=== PATIENT | male | born 2000 | race Two or more races ===

== ENCOUNTER 2020-11-19 10:35 | Outpatient (REF) | payer OTHER, SELFPAY | END 2020-11-19 10:36 | disposition home or self-care (01) | LOC: HO.LAB 10:35 | PROVIDERS: Visit Provider Internal Medicine | DX: Z20.822 Contact with and (suspected) exposure to COVID-19 (principal) | CPT/HCPCS: 36415; C9803; U0003; U0005 ==

== ENCOUNTER 2020-11-25 12:02 | Outpatient (REF) | payer OTHER, SELFPAY | END 2020-11-25 12:03 | disposition home or self-care (01) | LOC: HO.LAB 12:02 | PROVIDERS: Visit Provider Internal Medicine | DX: Z20.822 Contact with and (suspected) exposure to COVID-19 (principal) | CPT/HCPCS: 36415; C9803; U0003; U0005 ==

== ENCOUNTER 2023-01-15 20:47 | Emergency (ER) | payer OTHER, SELFPAY ==
--- NOTE | ~2023-01-15 | CT_ITS ---
EXAMINATION: CT HEAD WITHOUT CONTRAST CLINICAL INFORMATION: Headache for 2 weeks, neurofibromatosis brain tumors COMPARISON: None available. TECHNIQUE: Contiguous axial imaging was performed from the skull base to vertex without intravenous administration of contrast. This CT examination was performed using dose optimization techniques as appropriate, variously including the following: *Automated exposure control *Adjustment of mA and/or kV according to patient size (this includes techniques or standardized protocols for targeted exams where dose is matched to indication/reason for exam; i.e. extremities or head) *Use of iterative reconstruction technique DLP: 689 mGy-cm FINDINGS: There is no evidence of acute intracranial hemorrhage or territorial infarction. No abnormal mass-effect or midline shift is seen. Miller to white matter differentiation is well preserved. No extra-axial fluid collections are identified. The ventricles are normal in size. There is no abnormal attenuation within the brain parenchyma. Right frontal calvarial varghese hole is suspected. No acute fracture is seen. The mastoid air cells and visualized portions of the paranasal sinuses are well-aerated. CT/CT head/brain wo IV con IMPRESSION: No acute intracranial pathology identified. If clinically warranted, assessment for masses would be better further performed with pre and postcontrast MRI.
[2023-01-15 20:54] VITALS: BP 127/76; PULSE 76; RESP 16; TEMP 37.1; O2SAT 97; BMI 21.3
[2023-01-15 21:22] LABS: Hematocrit 45.7 % (42.0-52.0); Hemoglobin 15.8 g/dl (14.0-18.0); Mean Corpuscular HGB Conc 34.6 g/dl (31.0-36.0); Mean Corpuscular Hemoglobin 30.5 pg (27.0-33.0); Mean Corpuscular Volume 88.2 fL (80.0-98.0); Platelet Count 209 X10*3/uL (160-400); Red Blood Count 5.18 X10*6/uL (4.60-5.80); Red Cell Distribution Width 11.9 % (11.0-16.0)
[2023-01-15 21:39] LABS: Anion Gap 15 (12-20); Blood Urea Nitrogen 15 mg/dL (9-16); Calcium 9.9 mg/dL (8.4-10.2); Carbon Dioxide 24 mmol/L (22-29); Chloride 108 mmol/L (96-108); Creatinine Clr Calc Pharmacy 117.6; Estimated Glomerular Filt Rate > 60; Glucose Random 84 mg/dL (60-115); Potassium 4.4 mmol/L (3.3-5.1); Sodium 143 mmol/L (135-145)
--- NOTE | 2023-01-15 22:12 | ED_ITS ---
HPI - Headache General Chief Complaint: Headache Stated Complaint: migraine Time Seen by Provider: 01/15/23 21:52 Source: patient Mode of arrival: ambulatory Limitations: no limitations History of Present Illness HPI Narrative: 22-year-old male who presents emergency department for evaluation headache x2 weeks. The patient states that he has a history of neural fibromatosis and when he was younger he had 2 brain tumors which required surgery. He states that he had a brain tumor when he was 7 years old that was prev any the drainage of spinal fluid and he also had a brain tumor when he was 15 years old which was prevented the drainage of blood out of his brain. The patient does not know the names of these tumors he states that he was operated on at [facility]. He states that he was followed by [facility] with MRI however his last MRI was 3 years prior and he currently does not have a PCP. He states he does get headaches frequently. He states that this headache started approximately 2 weeks prior, he does not recall the onset. He states that the headache has been constant but waxing and waning in intensity. The headache is worse on the left side of his head than on the right. The headache is a constant, sharp pain. He has been taking [id number] migraine relief pills (acetaminophen, aspirin and caffeine). He states that yesterday he took a total of 4 pills with no relief his pain. The pain does not change with position change. He does have nausea but no vomiting. He has no vision change he denied photophobia but he does have phonophobia. He denied numbness, weakness or paresthesias. Related Data Previous Rx's Medication Instructions Recorded metoclopramide HCl 10 mg tablet 10 mg PO Q6H PRN nausea and 01/15/23 (Reglan) vomiting #14 tabs Allergies Allergy/AdvReac Type Severity Reaction Status Date / Time No Known Allergies Allergy Verified 01/15/23 20:54 Review of Systems Review of Systems: Yes all other systems are reviewed and are negative [facility] Past Medical History [facility] Narrative: Past medical history: Neurofibromatosis, frequent headaches. 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 Social History Social History Advance Directives: No Advance Directives Information Provided: No Physical Exam Vital Signs: Vital Signs: Last Vital Signs Temp 98.7 F 01/15/23 20:54 Pulse 76 01/15/23 20:54 Resp 16 01/15/23 20:54 BP 127/76 01/15/23 20:54 Pulse Ox 97 01/15/23 20:54 O2 Del Method Room Air 01/15/23 20:54 BMI result Body Mass Index 21.3 Const: General: cooperative and no acute distress Orientation/consciousness: oriented to person and oriented to place Limitations: no limitations HEENT: Head: Yes normal to inspection, Yes normocephalic and Yes atraumatic Ears: external ears normal General nose exam: Normal external nose present Face and sinus: Yes normal facial exam Mouth: Normal oral and palatal mucosa present Throat: Yes posterior oropharynx normal Eyes: General: appearance normal, both eyes and all related structures Pupils: Equal, round and reactive pupils present Neck: Neck: Yes normal visual inspection, Yes no lymphadenopathy, Yes trachea midline and Yes supple Chest: Chest palpation & inspection: normal inspection of the chest and normal palpation of entire chest wall Resp: Effort & Inspection: normal respiratory effort and able to speak in complete sentences Auscultation: clear to auscultation bilaterally Cardio: Rate: regular rate Rhythm: regular rhythm Heart sounds: S1 normal heart sound present, S2 normal heart sound present and no murmurs GI: Inspection: Yes normal to inspection Palpation (GI): Soft to palpation, nontender and no guarding Auscultation: normal bowel sounds : General: Yes no CVA tenderness Back/Spine/Pelvis: Back: no CVA tenderness Skin: General skin exam: no rashes or lesions noted Neuro: General: oriented to person and oriented to place Cranial nerves: Yes CN's II-XII intact bilaterally and Yes Equal, round and reactive pupils present Cognition (Neuro): normal cognition Motor exam (neuro): 5/5 motor strength present throughout Extrem: General: Yes normal to inspection Psych: Appearance: grossly normal Speech and movement: Normal speech and movement present Affect: normal affect Attitude: cooperative Thought process: Normal thought process present Medications Administered Discontinued Medications Generic Name Dose Route Start Last Admin Trade Name Freq PRN Reason Stop Dose Admin Diphenhydramine HCl 50 mg 01/15/23 22:09 01/15/23 22:34 Diphenhydramine Hcl 50 Mg/Ml Vial IVPUSH 01/15/23 22:10 50 mg ONCE STA Administration Sodium Chloride 1,000 mls @ 999 mls/hr 01/15/23 22:09 01/15/23 22:33 Ns IV 01/15/23 23:09 999 mls/hr .Q1H1M STA Administration Ketorolac Tromethamine 15 mg 01/15/23 22:09 01/15/23 22:34 Ketorolac Tromethamine 15 Mg/Ml Vial IVPUSH 01/15/23 22:10 15 mg ONCE STA Administration Metoclopramide HCl 10 mg 01/15/23 22:09 01/15/23 22:34 Metoclopramide Hcl 10 Mg/2 Ml Vial IVPUSH 01/15/23 22:10 10 mg ONCE STA Administration Medical Decision Making Medical Decision Making MDM Narrative: 22-year-old male with a history of neurofibromatosis who has had 2 brain tumors requiring resection when he was 7 years old and 15-year-old, who was followed by [facility] and last had an MRI when he was 19 years old (3 years prior), who presents emergency department for evaluation of constant, sharp, pressure-like headache x2 weeks, greater on the left side of his head than on the right. Patient had associated nausea with no vomiting, no vision change but he did have phonophobia. Patient has been taking migraine relief pills (acetaminophen, aspirin and caffeine) with only minimal improvement of his pain. Patient's physical examination and neurologic exam were unremarkable. I did order a CBC, BMP, CRP and ESR on the patient. Patient was ordered to get normal saline IV x1 L. his headache was treated with Toradol 15 mg IV, Reglan 10 mg IV and Benadryl 50 mg IV. I will obtain a CT scan of the brain to rule out mass effect verses hydronephrosis. 2326: My interpretation patient's laboratory data is as follows: CBC normal. ESR normal. BMP normal . CMP normal CT scan of the brain revealed no acute findings which is reassuring. The patient's headache improved with the above medication. He states that his pain is almost completely resolved and is 1 to 2/10 at this time. Given his negative workup, the patient will be discharged home. I did tell him that he should get the information regarding his tumors and surgeries from his mother and either follow-up with [facility] or follow-up with our neurologist to determine if he needs any further studies such as an MRI. Patien t will be started on the migraine regimen Reglan 10 mg, Benadryl 50 mg and Excedrin migraine 2 pills every 6 hours as needed for headaches. Differential Diagnosis Differential diagnosis includes was not limited to viral syndrome, acute migraine headache, nonspecific headache, mass effect, hydrocephalus, recurrence of brain tumor Lab Data [facility] Lab Attestation statement: I reviewed the patient's lab results. (See MDM) 01/15/23 21:17 01/15/23 21:17 Labs: Lab Results 01/15/23 01/15/23 01/15/23 Range/Units 21:17 21:17 22:23 WBC 7.0 (4.8-10.8) X10*3/uL RBC 5.18 (4.60-5.80) X10*6/uL Hgb 15.8 (14.0-18.0) g/dl Hct 45.7 (42.0-52.0) % MCV 88.2 (80.0-98.0) fL MCH 30.5 (27.0-33.0) pg MCHC 34.6 (31.0-36.0) g/dl RDW 11.9 (11.0-16.0) % Plt Count 209 (160-400) X10*3/uL MPV 11.0 (9.4-12.4) fL Absolute Nucleated RBC 0.000 (0.0-0.012) X10*3/uL Nucleated RBC % (auto) 0.0 (0.0-0.2) /100WBC ESR 1 (0-15) MM/HR Sodium 143 (135-145) mmol/L Potassium 4.4 (3.3-5.1) mmol/L Chloride 108 (96-108) mmol/L Carbon Dioxide 24 (22-29) mmol/L Anion Gap 15 (12-20) BUN 15 (9-16) mg/dL Creatinine 0.88 (0.5-1.4) mg/dL Estim Creat Clear Calc 117.6 Estimated GFR > 60 Random Glucose 84 (60-115) mg/dL Calcium 9.9 (8.4-10.2) mg/dL C-Reactive Protein (< or = 0.50) mg/dL 01/15/23 Range/Units 22:23 WBC (4.8-10.8) X10*3/uL RBC (4.60-5.80) X10*6/uL Hgb (14.0-18.0) g/dl Hct (42.0-52.0) % MCV (80.0-98.0) fL MCH (27.0-33.0) pg MCHC (31.0-36.0) g/dl RDW (11.0-16.0) % Plt Count (160-400) X10*3/uL MPV (9.4-12.4) fL Absolute Nucleated RBC (0.0-0.012) X10*3/uL Nucleated RBC % (auto) (0.0-0.2) /100WBC ESR (0-15) MM/HR Sodium (135-145) mmol/L Potassium (3.3-5.1) mmol/L Chloride (96-108) mmol/L Carbon Dioxide (22-29) mmol/L Anion Gap (12-20) BUN (9-16) mg/dL Creatinine (0.5-1.4) mg/dL Estim Creat Clear Calc Estimated GFR Random Glucose (60-115) mg/dL Calcium (8.4-10.2) mg/dL C-Reactive Protein 0.15 (< or = 0.50) mg/dL Radiology Impression Discussion of test interpretation with radiology: I have reviewed the radiologist's reading. Radiologist Impression: CT head/brain wo IV con IMPRESSION: No acute intracranial pathology identified. If clinically warranted, assessment for masses would be better further performed with pre and postcontrast MRI. Dictated By:Ej Potter MD Discharge Plan Discharge Clinical Impression: Migraine headache Patient Disposition: Home, Self-Care Instructions: Migraine Headache (ED) Additional Instructions: Your blood work included a complete blood count (CBC), basic metabolic panel (BMP), sedimentation rate (ESR) and C-reactive protein (CRP). These tests were all normal. The CT scan of your brain without IV contrast was also normal, there was no large tumor or mass effect noted, there was no swelling of the brain (hydrocephalus) noted by the radiologist. At this time, I believe that your symptoms are consistent with a migraine syndr ome. I want you to take the following 3 medications together every 6 hours as needed for headache, nausea or vomiting. Reglan (metoclopramide) in 10 mg, 1 pill Benadryl 25 mg, 2 pills Migraine Relief/Excedrin migraine (acetaminophen, aspirin and caffeine), 2 pills. After you take these medications, lie down in a dark quiet room and try to fall asleep. These medications will make you sleepy, do not drive or work after taking these medications. Follow-up with your doctor in 2 days. Please return to the emergency department if your symptoms get worse or if you develop any symptoms that are concerning to you. You should get the information regarding your tumors in brain surgeries from her mother and either follow-up with [facility] or our neurologist to determine if you need any further imaging studies such as an MRI or other further tests. Prescriptions: New metoclopramide HCl [Reglan] 10 mg tablet 10 mg PO Q6H PRN (Reason: nausea and vomiting) Qty: 14 0RF Referrals: George Chapman MD [Physician] - 2 weeks (Migraine headache x2 weeks, history of neurofibromatosis, brain tumors in the past requiring surgery. Labs normal. CT negative) Jeremy Long MD [Physician] - 2 weeks (Migraine headache x2 weeks, history of neurofibromatosis, brain tumors in the past requiring surgery. Labs normal. CT negative)
[2023-01-15] MEDS: 0.9 % Sodium Chloride 1,000 ML 999 ML IV (22:33)
[2023-01-15] MEDS: Metoclopramide HCl 10 MG/2 ML VIAL IVPUSH (22:34)
[2023-01-15] MEDS: Ketorolac Tromethamine 15 MG/ML VIAL IVPUSH (22:34)
[2023-01-15] MEDS: diphenhydrAMINE HCL 50 MG/ML VIAL IVPUSH (22:34)
[2023-01-15 22:46] LABS: C Reactive Protein 0.15 mg/dL (< or = 0.50)
[2023-01-15 23:21] LABS: Erythrocyte Sedimentation Rate 1 MM/HR (0-15)
--- NOTE | 2023-01-16 00:58 | PC.NURSE ---
When I went to discharge the pt, the bed was empty and pt was nowhere to be found. Pt considered an elopement. [employer] sales representative aware.
[2023-01-16 01:38] VITALS: BP 103/55; PULSE 74; RESP 16; TEMP 36.9; O2SAT 99
== END 2023-01-16 01:40 | disposition home or self-care (01) ==
PROVIDERS: Emergency Provider Emergency Medicine Emergency Medical Services
DX: G43.909 Migraine, unspecified, not intractable, without status migrainosus (principal); Z79.899 Other long term (current) drug therapy
CPT/HCPCS: 36415; 70450; 80048; 85027; 85652; 86140; 96361; 96374; 96375; 99284; J1200; J1885; J2765

== ENCOUNTER 2023-07-02 14:10 | Emergency (ER) | payer OTHER, SELFPAY ==
--- NOTE | ~2023-07-02 | CT_ITS ---
EXAMINATION: CT head/brain wo IV con CLINICAL INFORMATION: Reason for Exam right sided migraines, hx brain tumor COMPARISON: CT brain 01/15/2023 TECHNIQUE: Contiguous axial imaging was performed from the skull base to vertex without intravenous contrast. Sagittal and coronal reformatted images were obtained. This CT examination was performed using dose optimization techniques as appropriate, variously including the following: * Automated exposure control * Adjustment of mA and/or kV according to patient size (this includes techniques or standardized protocols for targeted exams where dose is matched to indication/reason for exam; i.e. extremities or head) Use of iterative reconstruction technique DLP: 650 mGy-cm FINDINGS: No acute osseous or soft tissue abnormality. 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 The mastoid air cells and visualized portions of the paranasal sinuses are well aerated. There is no evidence of acute intracranial hemorrhage or territorial infarction. No abnormal mass effect or midline shift is seen. Miller to white matter differentiation is well preserved. No extra-axial fluid collections are identified. Stable trace right frontal encephalomalacia. No hydrocephalus. CT/CT head/brain wo IV con IMPRESSION: 1. No acute intracranial abnormality.
[2023-07-02 14:32] VITALS: BP 115/85; PULSE 81; RESP 16; TEMP 37.2; O2SAT 98; BMI 21.1
--- NOTE | 2023-07-02 14:32 | ED.HA ---
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 States that he has taken both Tylenol and ibuprofen without improvement in symptoms. States that his headaches have become so severe it is interfering with his sleep. He also complains of photophobia and occasional blurred vision. He denies any nausea or vomiting. Denies any dizziness, lightheadedness, syncope. Denies any neck or back pain. Denies worst headache of life, denies worst at onset. Denies weight loss, night sweats. MD elicited complaint: migraine Pertinent past history: other (neurofibromatosis with tumor resection x2) Onset (ago): week(s) Onset description: gradually Location: right Severity: severe Quality & Timing: dull Exacerbating factors: light and noise Relieving factors: rest and dark room Context: occurred at rest Associated symptoms: photophobia Treatments prior to arrival: acetaminophen and ibuprofen Related Data Previous Rx's Medication Instructions Recorded metoclopramide HCl 10 mg tablet 10 mg PO Q6H PRN nausea and 01/15/23 (Reglan) vomiting #14 tabs Allergies Allergy/AdvReac Type Severity Reaction Status Date / Time No Known Allergies Allergy Verified 07/02/23 14:36 Review of Systems Review of Systems: As per HPI. Yes all other systems are reviewed and are negative Constitutional: Constitutional: Reports as per HPI [facility] Social History Social History Advance Directives: No Physical Exam Vital Signs: Vital Signs: Last Vital Signs Temp 98.9 F 07/02/23 14:32 Pulse 75 07/02/23 18:05 Resp 18 07/02/23 18:05 BP 129/81 07/02/23 18:05 Pulse Ox 100 07/02/23 18:05 O2 Del Method Room Air 07/02/23 18:05 BMI result Body Mass Index 21.1 Vital signs have been reviewed and appear to be correct. Blood pressure normal. Heart rate normal. Respiratory rate normal. Temperature normal. Oxygen saturation normal. Const: General: cooperative, healthy appearing and no acute distress Orientation/consciousness: oriented to person, oriented to place, oriented to time and patient oriented x3 Limitations: no limitations HEENT: Head: Yes normocephalic and Yes atraumatic Ears: external ears normal General nose exam: Normal external nose present Face and sinus: Yes face symmetric Mouth: oropharynx normal and moist mucous membranes Throat: Yes uvula midline Eyes: Pupils: Equal, round and reactive pupils present Neck: Neck: Yes normal visual inspection and Yes supple Resp: Effort & Inspection: normal respiratory effort and able to speak in complete sentences Auscultation: clear to auscultation bilaterally Cardio: Rate: regular rate Rhythm: regular rhythm Heart sounds: S1 normal heart sound present and S2 normal heart sound present GI: Palpation (GI): Soft to palpation and nontender Auscultation: normoactive bowel sounds : General: Yes no CVA tenderness Back/Spine/Pelvis: Back: no CVA tenderness Skin: General skin exam: elasticity normal and turgor normal Neuro: General: oriented to person, oriented to place, oriented to time, patient oriented x3, moves all extremities, no focal motor deficits and CN's II-XI intact bilaterally Cranial nerves: Yes Equal, round and reactive pupils present Cognition (Neuro): normal cognition Extrem: General: Yes full ROM, Yes no pedal edema and Yes no calf tenderness Psych: Mental Status: mental status grossly normal Affect: normal affect Thought process: Normal thought process present Course Course Course Narrative: RME - 23 yo male with history of neurofibromatosis type II who has had 2 brain tumors requiring resection when he was 7 years old and 15-year-old, who was followed by [facility] and last had an MRI 2017/2018 and history of migraines presents to the ER for evaluation of a right sided migraine headache for the last 2 weeks. His neurologist retired. Reports some numbness to the right side of the face. +blurry vision and photophobia Plan: CT head Medications Administered Discontinued Medications Generic Name Dose Route Start Last Admin Trade Name Freq PRN Reason Stop Dose Admin Diphenhydramine HCl 25 mg 07/02/23 16:49 07/02/23 18:07 Diphenhydramine Hcl 50 Mg/Ml Vial IVPUSH 07/02/23 16:50 25 mg ONCE ONE Administration Sodium Chloride 1,000 mls @ 999 mls/hr 07/02/23 17:00 07/02/23 18:01 Ns IV 07/02/23 18:00 999 mls/hr .Q1H1M DELFINO Administration Ketorolac Tromethamine 15 mg 07/02/23 16:49 07/02/23 18:02 Ketorolac Tromethamine 15 Mg/Ml Vial IVPUSH 07/02/23 16:50 15 mg ONCE ONE Administration Metoclopramide HCl 10 mg 07/02/23 16:49 07/02/23 18:07 Metoclopramide Hcl 10 Mg/2 Ml Vial IVPUSH 07/02/23 16:50 10 mg ONCE ONE Administration Medical Decision Making Medical Decision Making MDM Narrative: Patient is a 23 old male with 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 On exam patient is awake, A+Ox3, VS WNL, afebrile, normal neurological exam without focal deficits, physical exam findings as above. Given reported symptoms and physical exam findings, initial differential includes migraine, tension headache. Given history CT head obtained to evaluate for any new mass, pseudotumor, SAH/ICH. Do not suspect carotid artery dissection, encephalitis, meningitis. CT notable for no acute intracranial abnormality. My interpretation is in agreement with the radiologist's interpretation. Order IV fluids, pain medication, reassess. Patient reports improvement in symptoms with medications and fluids, rates current pain at 2/10. Patient states he feels comfortable being discharged home and I feel patient is stable for discharge home at this time. Instructed patient to follow-up with primary care provider. Will refer to Neurology as patient states he does not currently have a neurologist. Return precautions discussed at bedside. Patient verbalized understanding of and agreement with plan. Differential Diagnosis Differential Diagnoses: The differential diagnosis associated with the presentation includes As per MDM. Admission/Observation Consideration of admission/observation: Escalation of care including admission/observation considered Independent Interpretation I performed an independent interpretation of an: CT Scan Interpretation: No acute intracranial abnormalities Radiology Impression Discussion of test interpretation with radiology: I have reviewed the radiologist's reading. Radiologist Impression: CT/CT head/brain wo IV con IMPRESSION: 1. No acute intracranial abnormality. External Record Review External record reviewed: Inpatient record, Office record and Outpatient record Chronic Conditions Patient?s care impacted by: Other Discharge Plan Discharge Clinical Impression: Headache Qualifiers: Headache type: unspecified Headache chronicity pattern: acute headache Intractability: not intractable Qualified Code(s): R51.9 - Headache, unspecified Patient Disposition: Home, Self-Care Instructions: Acute Headache (DC) Additional Instructions: You have been evaluated in the emergency department today for headache. Your evaluation did not show evidence of medical conditions requiring emergent intervention at this time, and your pain improved with medication in the ED. We recommend you take 600 mg ibuprofen every 6 hours or Tylenol 650 mg every 6 hours as needed for pain. If needed, you can alternate these medications so that you take 1 medication every 3 hours. For instance, at noon take ibuprofen, then at 3:00 p.m. take Tylenol, then at 6:00 p.m. take ibuprofen. Please follow-up with your primary care provider within 2 days. Return to the emergency department if you experience worsening or uncontrolled pain, vision changes, recurrent vomiting, difficulty with normal activities, abnormal behavior, difficulty walking, numbness, weakness, or any other concerning symptoms. You are being referred to Neurology, please contact them to establish care and set up an appointment. Prescriptions: No Action metoclopramide HCl [Reglan] 10 mg tablet 10 mg PO Q6H PRN (Reason: nausea and vomiting) Qty: 14 0RF Referrals: George Chapman MD [Physician] - Stand Alone Forms: Work/School Release
[2023-07-02] MEDS: 0.9 % Sodium Chloride 1,000 ML 999 ML IV (18:01)
[2023-07-02] MEDS: Ketorolac Tromethamine 15 MG/ML VIAL IVPUSH (18:02)
[2023-07-02 18:05] VITALS: BP 129/81; PULSE 75; RESP 18; O2SAT 100
[2023-07-02] MEDS: Metoclopramide HCl 10 MG/2 ML VIAL IVPUSH (18:07)
[2023-07-02] MEDS: diphenhydrAMINE HCL 50 MG/ML VIAL 25 MG IVPUSH (18:07)
[2023-07-02 19:38] VITALS: BP 116/71; PULSE 68; RESP 18; TEMP 36.5; O2SAT 100
--- NOTE | 2023-07-02 19:38 | MHC.EDTECH ---
This tech assumed care of patient at 1900,hourly rounds and vitals completed.patient is awaiting discharge at this time.
== END 2023-07-02 19:44 | disposition home or self-care (01) ==
PROVIDERS: Emergency Provider Emergency Medicine
DX: G43.909 Migraine, unspecified, not intractable, without status migrainosus (principal); R11.2 Nausea with vomiting, unspecified; H53.149 Visual discomfort, unspecified
CPT/HCPCS: 70450; 96361; 96374; 96375; 99284; J1200; J1885; J2765

== ENCOUNTER 2025-03-20 19:23 | Emergency (ER) | payer MEDICAID, SELFPAY ==
--- NOTE | ~2025-03-20 | CT_ITS ---
CLINICAL HISTORY: right temporal [place] --- Additional Notes or Special Instructions: hx of neurofibromatosis brain tumors CT head without contrast. COMPARISON: None provided. FINDINGS: The visualized paranasal sinuses are clear. The mastoid air cells are clear. No calvarial fracture. No evidence for mass or mass effect. No intracranial hemorrhage or abnormal extra-axial fluid collection. No evidence of hydrocephalus. The basilar cisterns are patent. Posterior fossa appears unremarkable. IMPRESSION: 1. No acute intracranial findings. This document has been electronically signed by: Macho Oh MD on 03/20/2025 20:33:22
--- NOTE | 2025-03-20 19:36 | ED_ITS ---
HPI - General Adult General Chief complaint: Headache Stated complaint: migraines/hx of tumors Time Seen by Provider: 03/20/25 21:01 Source: patient Mode of arrival: ambulatory Limitations: no limitations History of Present Illness ED Provider: Dr. Ingrid Fuller HPI narrative: Patient comes to the emergency room complaining of a headache. Patient states that he has right-sided headache, pulsating. Patient states that he has currently a tooth infection and he is not sure if the pain that he is feeling is secondary to radiation from his jaw up to his head, or if he has migraine headache which he has had before. Patient states that he has history of neurofibromatosis and is concerned that there may be tumors causing the pain. Patient denies any neurological deficits. Patient states most of the headache is on the right side. Denies any visual changes denies photophobia, denies nausea vomiting or diarrhea, denies any exposures to sick contacts Related Data Previous Rx's ?Medication ?Instructions ?Recorded metoclopramide HCl 10 mg tablet 10 mg PO Q6H PRN nause a and 01/15/23 (Reglan) vomiting #14 tabs ketorolac 10 mg tablet 10 mg PO Q8H PRN pain #12 ta bs 03/20/25 metoclopramide HCl 5 mg tablet 5 mg PO Q8H PRN nausea and 03/20/25 (Reglan) vomiting #12 tabs Allergies Allergy/AdvReac Type Severity Reaction Status Date / Time No Known Allergies Allergy Verified 03/20/25 19:42 Review of Systems 2 Review of Systems: Constitutional : No Weight loss, No Fever, No Chills, No Night Sweats, No Fatigue, No Malaise ENT/Mouth : Patient currently on antibiotics for a tooth infection No Hearing loss, No Ear Pain, No Nasal Congestion, No Sinus Pain, No Hoarseness, No sore throat, No Rhinorrhea, No Swallowing Difficulty Eyes: No Eye Pain, No Swelling, No Redness, No Foreign Body, No Discharge, No Vision Changes Cardiovascular : No Chest Pain, No SOB, No Dyspnea on Exertion, No Orthopnea, No Edema, No Palpitations Respiratory : No Cough, No Sputum, No Wheezing, No Smoke Exposure, No Dyspnea Gastrointestinal : No Nausea, No Vomiting, No Diarrhea, No Constipation, No abdominal Pain, No Hematochezia, No Melena Genitourinary : no irregular bleeding, No Dysuria, No Urinary Frequency, No Hematuria, No Urinary Incontinence, No Urgency, No Flank Pain, No Urinary Flow Changes, No Hesitancy Musculoskeletal : No joint pain, No Myalgias, No Joint Swelling Skin : No Skin Lesions, No rash Neuro : No Weakness, No Numbness, No Paresthesias, No Loss of Consciousness, No Dizziness, complaining of right-sided Headache Psych : No Anxiety/Panic, No Depression, No SI/HI/AH/VH, No Social Issues, Heme/Lymph: No Bruising, No Bleeding,No Lymphadenopathy Endocrine : No Polyuria, No Polydipsia, No Temperature Intolerance [facility] Social History Social History Smoked in Last 30 Days: Yes Use of substances other than those prescribed or required for medical reasons: No Advance Directives: No Advance Directives Information Provided: Yes Do you have a plan to hurt others: No Plan Physical Exam ED Vital Signs: Vital Signs - 24 hr 03/20/25 19:37 03/20/25 22:00 Temperature 97.9 F 98.7 F Pulse Rate 74 80 Respiratory Rate 16 18 Blood Pressure 130/84 133/74 Pulse Oximetry 98 100 Oxygen Delivery Method Room Air Room Air BMI result Body Mass Index 23.1 Const Other: Appearance: Alert. Oriented X3. No acute distress. Well-appearing Eyes: Pupils equal, round and reactive to light. ENT: Pharynx normal. No obvious dental abscesses Neck: Normal inspection. Neck supple. No lymph nodes noted. No crepitus CVS: Normal heart rate and rhythm. Pulses normal. Normal S1 and S2 Respiratory: No respiratory distress. Breath sounds normal. No Wheezing. No rales Abdomen: Soft and nontender. No rigidity. No distention. Skin: Skin warm and dry. Normal skin color. Normal skin turgor. Extremities: No lower extremity edema. No Lacerations. No Rash Neuro: Oriented X 3. No motor deficit. No sensory deficit. Moving all extremities. No slurred speech. CN 2 through 12 grossly intact Psych: calm, cooperative, normal affect Course Course Course Narrative: 03/20/25 193 SUSANNA Silva This is a Rapid Medical Examination (RME) performed by Bria Couch PA-C in triage. Full HPI, ROS, assessment and treatment plan per primary provider in the Main ED. Hx: 24 yo M here for eval of constant headache to right yazidi x1 week. reports pain came on suddenly, then resolved. returned the following morning and has been constant since. Describes it as a sharp, pulsating sensation. reports hx of neurofibromatosis, states this feels similar to previous tumors. taking motrin w/o relief. last dose around 1600 today. does not currently follow with neurologist. no speech concerns. no vision changes. no recent URI. also reports infection to right lower tooth. saw dentist today, prescribed amoxicillin, took one dose today. no fever, chills. PE/vitals: well appearing, exam nonfocal. Plan: labs, viral swabs, CT Medications Administered Discontinued Medications Generic Name Dose Route Start Last Admin Trade Name Freq PRN Reason Stop Dose Admin Diphenhydramine HCl 25 mg 03/20/25 21:46 03/20/25 22:05 Diphenhydramine Hcl 50 Mg/Ml Vial IVPUSH 03/20/25 21:47 25 mg ONCE ONE Administration Sodium Chloride 500 mls @ 999 mls/hr 03/20/25 21:46 03/20/25 22:05 Ns IVCONT 03/20/25 22:16 999 mls/hr .Q31M ONE Administration Ketorolac Tromethamine 30 mg 03/20/25 21:46 03/20/25 22:08 Ketorolac Tromethamine 30 Mg/Ml Vial IVPUSH 03/20/25 21:47 30 mg ONCE ONE Administration Metoclopramide HCl 10 mg 03/20/25 21:46 03/20/25 22:06 Metoclopramide Hcl 10 Mg/2 Ml Vial IVPUSH 03/20/25 21:47 10 mg ONCE ONE Administration Medical Decision Making Medical Decision Making [facility] Narrative: My interpretation of labs: No significant abnormality in patient's hematology and chemistry, serology negative for influenza RSV and COVID CT scan of the head does not show any evidence of mass or mass effect, no intracranial hemorrhage or extra-axial fluid collection Patient likely has a migraine headache Patient's vitals are stable, blood pressure 130/84, heart rate 74, temperature 97.9 degrees, oxygen saturation 98% on room air Patient receiving IV fluids, IV Toradol, Reglan and Benadryl Differential Diagnosis Differential Diagnoses: The differential diagnosis associated with the presentation includes (As above) Admission/Observation Consideration of admission/observation: Escalation of care including admission/observation considered (Given patient's history and presentation, observation was considered) Lab Data MDM Lab Attestation statement: I reviewed the patient's lab results. 03/20/25 19:57 03/20/25 19:57 Labs: Lab Results 03/20/25 Range/Units 19:57 WBC 6.6 (4.8-10.8) X10*3/uL RBC 4.81 (4.60-5.80) X10*6/uL Hgb 14.4 (14.0-18.0) g/dl Hct 41.7 L (42.0-52.0) % MCV 86.7 (80.0-98.0) fL MCH 29.9 (27.0-33.0) pg MCHC 34.5 (31.0-36.0) g/dl RDW 12.3 (11.0-16.0) % Plt Count 234 (160-400) X10*3/uL MPV 10.9 (9.4-12.4) fL Immature Gran % (Auto) 0.2 (0.0-0.4) % Neut % (Auto) 66.0 (45-73) % Lymph % (Auto) 24.5 (20-40) % [place] % (Auto) 6.9 (2-11) % Eos % (Auto) 1.8 (0-4) % Baso % (Auto) 0.6 (0-2) % Lymph # (Auto) 1.6 (1.2-4.9) X10*3/uL [place] # (Auto) 0.5 (0.1-1.2) X10*3/uL Eos # (Auto) 0.1 (0.0-0.4) X10*3/uL Baso # (Auto) 0.0 (0.0-0.2) X10*3/uL Abs Immat Gran (auto) 0.01 (0.00-0.03) X10*3/uL Absolute Neuts (auto) 4.3 (2.0-8.3) x10*3/uL Absolute Nucleated RBC 0.000 (0.0-0.012) X10*3/uL Nucleated RBC % (auto) 0.0 (0.0-0.2) /100WBC ESR 5 (0-15) MM/HR Sodium 141 (135-145) mmol/L Potassium 4.4 (3.3-5.1) mmol/L Chloride 109 H (96-108) mmol/L Carbon Dioxide 26 (22-29) mmol/L Anion Gap 10 L (12-20) BUN 9 (9-16) mg/dL Creatinine 0.88 (0.5-1.4) mg/dL Estim Creat Clear Calc 124.1 Estimated GFR > 60 Random Glucose 89 (60-115) mg/dL Calcium 9.8 (8.4-10.2) mg/dL Magnesium 2.0 (1.6-2.6) mg/dL Total Bilirubin 0.6 (0.0-1.0) mg/dL AST 23 (5-37) U/L ALT 21 (0-40) U/L Alkaline Phosphatase 57 (39-117) U/L C-Reactive Protein 0.40 (< or = 0.50) mg/dL Total Protein 7.3 (6.5-8.0) g/dL Albumin 4.6 (3.5-5.0) g/dL Influenza Type A (PCR) NEGATIVE (Negative) Influenza Type B (PCR) NEGATIVE (Negative) RSV RNA Qual (PCR) NEGATIVE (Negative) SARS-CoV-2 RNA (RT-PCR) NEGATIVE (Negative) Independent Interpretation I performed an independent interpretation of an: CT Scan Radiology Impression Discussion of test interpretation with radiology: I have reviewed the radiologist's reading. Radiologist Impression: The visualized paranasal sinuses are clear. The mastoid air cells are clear. No calvarial fracture. No evidence for mass or mass effect. No intracranial hemorrhage or abnormal extra-axial fluid collection. No evidence of hydrocephalus. The basilar cisterns are patent. Posterior fossa appears unremarkable. IMPRESSION: 1. No acute intracranial findings. Critical Care Time Critical Care Time Critical Care Time: Yes Total Critical Care Time: 35 Attestation: I have personally provided critical care time. Time includes review of lab data, radiology results, discussion with consultants, and monitoring for potential decompensation. Intervention performed as documented. Discharge Plan Discharge Clinical Impression: Migraine Patient Disposition: Home, Self-Care Instructions: Migraine Headache (ED) Additional Instructions: Please follow-up with your primary care physician tomorrow. If you have any worsening or new symptoms, please return to the emergency room or call 911 Prescriptions: New ketorolac 10 mg tablet 10 mg PO Q8H PRN (Reason: pain) Qty: 12 0RF Rx Instructions: Do not use this medication with any NSAIDs, only Tylenol if needed metoclopramide HCl [Reglan] 5 mg tablet 5 mg PO Q8H PRN (Reason: nausea and vomiting) Qty: 12 0RF Rx Instructions: Take together with ketorolac p.r.n. migraine headache No Action metoclopramide HCl [Reglan] 10 mg tablet 10 mg PO Q6H PRN (Reason: nausea and vomiting) Qty: 14 0RF Print Language: Yi
[2025-03-20 19:37] VITALS: BP 130/84; PULSE 74; RESP 16; TEMP 36.6; O2SAT 98; BMI 23.1
[2025-03-20 20:03] LABS: MANUAL DIFF FLAG NO
[2025-03-20 20:21] LABS: Alanine Aminotransferase 21 U/L (0-40); Albumin Level 4.6 g/dL (3.5-5.0); Alkaline Phosphatase 57 U/L (39-117); Anion Gap 10 (12-20); Aspartate Amino Transferase 23 U/L (5-37); Bilirubin Total 0.6 mg/dL (0.0-1.0); Blood Urea Nitrogen 9 mg/dL (9-16); Calcium 9.8 mg/dL (8.4-10.2); Carbon Dioxide 26 mmol/L (22-29); Chloride 109 mmol/L (96-108); Creatinine Clr Calc Pharmacy 124.1; Estimated Glomerular Filt Rate > 60; Glucose Random 89 mg/dL (60-115); Potassium 4.4 mmol/L (3.3-5.1); Sodium 141 mmol/L (135-145); Total Protein 7.3 g/dL (6.5-8.0)
[2025-03-20 20:26] LABS: Basophils Percent Auto 0.6 % (0-2); Eosinophils Absolute Auto 0.1 X10*3/uL (0.0-0.4); Eosinophils Percent Auto 1.8 % (0-4); Hematocrit 41.7 % (42.0-52.0); Hemoglobin 14.4 g/dl (14.0-18.0); Imm Gran Abs Auto 0.01 X10*3/uL (0.00-0.03); Imm Gran Pct Auto 0.2 % (0.0-0.4); Lymphocytes Absolute Auto 1.6 X10*3/uL (1.2-4.9); Lymphocytes Percent Auto 24.5 % (20-40); Mean Corpuscular HGB Conc 34.5 g/dl (31.0-36.0); Mean Corpuscular Hemoglobin 29.9 pg (27.0-33.0); Mean Corpuscular Volume 86.7 fL (80.0-98.0); Mean Platelet Volume 10.9 fL (9.4-12.4); Monocytes Absolute Auto 0.5 X10*3/uL (0.1-1.2); Monocytes Percent Auto 6.9 % (2-11); Neutrophils Absolute Auto 4.3 x10*3/uL (2.0-8.3); Platelet Count 234 X10*3/uL (160-400); Red Blood Count 4.81 X10*6/uL (4.60-5.80); Red Cell Distribution Width 12.3 % (11.0-16.0); White Blood Count 6.6 X10*3/uL (4.8-10.8)
[2025-03-20 20:43] LABS: Influenza A PCR NEGATIVE (Negative); Influenza B PCR NEGATIVE (Negative); Resp Syncy Virus RNA Qual PCR NEGATIVE (Negative); SARS COV2 PCR INHOUSE NEGATIVE (Negative)
--- OUTSIDE RECORDS SUMMARY | 2025-03-20 21:14 | XMS_ITS | Encounter Summary ---
Author Organization [facility] Address [address] [place] [phone] Phone Care Team Providers Care Investigator Internal Affairs Name Role Phone Cristian Ward MD Primary Care Provider [phone] Encounter Details Date Type Department Care Team (Late st Contact Info) Description 01/22/2016 Documentation [facility] [place] [address] [place] [address] Family Medicine, Physician [address] [place], [place] [id number] Social History Tobacco Use Types Packs/Day Years Used Date Smoking Tobacco: Never Assessed Sex and Gender Information Value Date Recorded Sex Assigned at Not on file Legal Sex Male 4:57 PM EDT Gender Identity Not on file Sexual Orientation Not on file documented as of this encounter Plan of Treatment Not on file documented as of this encounter Visit Diagnoses Not on filedocumented in this encounter Care Teams Investigator Internal Affairs Relationship Specialty Start Date End Date Cristian Ward MD [address] [place] [address] [place] [address] PCP - General 05/12/17 01/10/23 documented as of this encounter
[2025-03-20 21:15] LABS: Erythrocyte Sedimentation Rate 5 MM/HR (0-15)
[2025-03-20 22:00] VITALS: BP 133/74; PULSE 80; RESP 18; TEMP 37.1; O2SAT 100
[2025-03-20] MEDS: diphenhydrAMINE HCL 50 MG/ML VIAL 25 MG IVPUSH (22:05)
[2025-03-20] MEDS: 0.9 % Sodium Chloride 500 ML 999 ML IVCONT (22:05)
[2025-03-20] MEDS: Metoclopramide HCl 10 MG/2 ML VIAL IVPUSH (22:06)
[2025-03-20] MEDS: Ketorolac Tromethamine 30 MG/ML VIAL IVPUSH (22:08)
[2025-03-20 23:58] VITALS: BP 116/76; PULSE 71; RESP 16; TEMP 37.1; O2SAT 99
== END 2025-03-20 23:59 | disposition home or self-care (01) ==
PROVIDERS: Physician Assistant Medical; Emergency Provider Emergency Medicine
DX: G43.909 Migraine, unspecified, not intractable, without status migrainosus (principal); R68.84 Jaw pain; K08.89 Other specified disorders of teeth and supporting structures; Z79.899 Other long term (current) drug therapy; Z03.818 Encounter for observation for suspected exposure to other biological agents ruled out
CPT/HCPCS: 0241U; 36415; 70450; 80053; 83735; 85025; 85652; 86140; 96361; 96374; 96375; 99284; J1200; J1885; J2765

== ENCOUNTER → 2025-03-20 19:39 | Outpatient (BNV) | payer OTHER, SELFPAY | PROVIDERS: Emergency Provider Emergency Medicine; Visit Provider Radiology Diagnostic Radiology | DX: Z86.011 Personal history of benign neoplasm of the brain (principal) | CPT/HCPCS: 70450 ==